=== PATIENT | female | born 2000 | race African-American/Black ===

== ENCOUNTER 2021-05-15 11:53 | Emergency (ER) | payer OTHER ==
[~2021-05-15] VITALS: Ht 157.5 cm; Wt 85.9 kg
[2021-05-15] MEDS ORDERED: THERAFLU FLU &1 EAC1 PO (12:22)
[2021-05-15] MEDS ORDERED: IBUPROFEN IB200 MG PO (12:22)
[2021-05-15] MEDS ORDERED: CEFDINIR300 MG PO (12:22)
== END 2021-05-15 12:30 | disposition home or self-care (01) ==
LOC: FSED 11:59
DX: H66.92 Otitis media, unspecified, left ear (principal); J06.9 Acute upper respiratory infection, unspecified; R05.9 Cough, unspecified; Z20.822 Contact with and (suspected) exposure to COVID-19
CPT/HCPCS: 99282

== ENCOUNTER 2021-05-26 19:44 | Emergency (ER) | payer OTHER ==
[~2021-05-26] VITALS: Ht 160 cm; Wt 88.5 kg
[~2021-05-26 19:44] MED LIST: CEFDINIR300 MG PO; IBUPROFEN IB200 MG PO; THERAFLU FLU &1 EAC1 PO
[2021-05-26] MEDS ORDERED: ZYRTEC10 MG PO (20:31)
[2021-05-26 20:37] VITALS: BP 120/83
== END 2021-05-26 20:37 | disposition home or self-care (01) ==
LOC: FSED 20:30
DX: S40.871A Other superficial bite of right upper arm, initial encounter (principal); S40.861A Insect bite (nonvenomous) of right upper arm, initial encounter; J45.909 Unspecified asthma, uncomplicated
CPT/HCPCS: 99282

== ENCOUNTER 2022-02-08 08:24 | Emergency (ER) | payer OTHER ==
[~2022-02-08] VITALS: Ht 160 cm; Wt 95.8 kg
[~2022-02-08 08:24] MED LIST changes: +ZYRTEC10 MG PO
[2022-02-08] MEDS ORDERED: PROAIR HFA INH8.5 GM (09:08)
[2022-02-08] MEDS ORDERED: FLONASE ALLERG9.9 ML INH (09:08)
[2022-02-08] MEDS ORDERED: CEFDINIR300 MG PO (09:15)
[2022-02-08] MEDS ORDERED: IBUPROFEN200 MG PO (09:15)
[2022-02-08] MEDS ORDERED: THERAFLU FLU &1 EAC1 PO (09:15)
== END 2022-02-08 09:29 | disposition home or self-care (01) ==
LOC: FSED 08:28
DX: R05.9 Cough, unspecified (principal); J02.0 Streptococcal pharyngitis; R11.0 Nausea; J45.909 Unspecified asthma, uncomplicated
CPT/HCPCS: 83518; 87400; 99283